=== PATIENT | male | born 1995 | race African-American/Black ===

== ENCOUNTER → 2020-04-26 | Outpatient (CLI) | payer SELFPAY ==
[2012-12-05 05:53] VITALS: BP 126/84
[~2020-04-26] MED LIST: ALBUTEROL0.09 MG/A4 IH; AMOXICILLIN 8751 TAB PO; NO HOME MEDICATIONS; PHENERGAN W/CO120 M1 PO; PREDNISONE10 M1 PO; PREDNISONE20 M1 PO; ZITHROMAX Z PA250 MG PO
== END ==
LOC: LAB 10:09
DX: R05 Cough (principal); Z20.828 Contact with and (suspected) exposure to other viral communicable diseases